=== PATIENT | female | born 1995 | race Caucasian/White ===

== ENCOUNTER 2021-12-28 19:43 | Emergency (ER) | payer OTHER, SELFPAY ==
[2021-12-28 20:18] VITALS: BP 115/71; PULSE 82; RESP 20; TEMP 36.7; O2SAT 100
--- NOTE | 2021-12-28 22:51 | ED.NEUROSD ---
HPI - Neuro Symptoms/Deficit General Chief Complaint: Neuro Symptoms/Deficit Stated Complaint: MCLEAN, N/V Time Seen by Provider: 12/28/21 22:32 History of Present Illness HPI Narrative: 26-year-old female with a history of migraine headaches here for evaluation of headache earlier today. Patient states that she had her typical aura of right eye flashers and floaters, followed by a left-sided throbbing headache. Attempted Tylenol but threw up shortly afterwards, which she states is not typical of her migraines. She states that she also noticed some paresthesias in her bilateral upper and lower extremities after the headache, this has since resolved without intervention. At time of my evaluation patient feels normal aside from slight headache migraine. No fevers, chills, abdominal pain, neck pain or stiffness, head trauma, unilateral weakness. Patient's daughter has COVID. Related Data Allergies Allergy/AdvReac Type Severity Reaction Status Date / Time No Known Allergies Allergy Verified 12/28/21 23:36 Review of Systems Review of Systems: Gen: Denies fevers or chills Eyes: Denies eye pain or visual change ENT: Denies congestion Respiratory: Denies shortness of breath or cough CV: Denies chest pain or palpitations GI: Denies abdominal pain nausea, emesis or diarrhea : denies burning, urgency, frequency or hematuria Musculoskeletal: Denies back pain or muscle pain Neuro: Reports headache, numbness and tingling in bilateral upper and lower extremities. Skin: Denies rash Except as documented, all other systems reviewed and negative Exam Narrative: APPEARANCE: No acute distress, nontoxic, resting in bed EYES: EOMI, PERRLA HEENT: No nuchal rigidity. Normocephalic, atraumatic, OMM RESPIRATORY: No respiratory distress Clear to auscultation bilaterally with no rhonchi wheezing or rales. CARDIOVASCULAR: Regular rate and rhythm without murmurs rubs or gallops. ABDOMINAL: Soft, nontender, nondistended, no rebound or guarding MUSCULOSKELETAL: Moves all extremities. No clubbing, cyanosis or edema. NEURO: Cranial nerves II through XII intact. Wetlands Conservation Laborer strength equal. Sensation intact throughout all 4 extremities. SKIN: Warm, dry. No rashes lesions or abrasions PSYCHIATRIC: Normal affect/mood Course Vital Signs Vital signs: Vital Signs Temperature 98.1 F 12/28/21 20:18 Pulse Rate 82 12/28/21 20:18 Respiratory Rate 20 12/28/21 20:18 Blood Pressure 115/71 12/28/21 20:18 Pulse Oximetry 100 12/28/21 20:18 Oxygen Delivery Room Air 12/28/21 20:18 Temperature 98.4 F 12/28/21 23:57 Pulse Rate 70 12/28/21 23:57 Respiratory Rate 16 12/28/21 23:57 Blood Pressure 112/68 12/28/21 23:57 Pulse Oximetry 100 12/28/21 23:57 Oxygen Delivery Room Air 12/28/21 20:18 MDM - Neuro Symptoms/Deficit MDM Narrative Medical decision making narrative: 26 year old female with a history of migraine MCLEAN here for evaluation of a headache preceded by her typical aura but followed by several new symptoms; such as vomiting and paresthesias in all 4 extremities. At time of my evaluation her symptoms have improved but her migraine remains. Patient has no deficits on exam; no nuchal rigidity and no weakness. Her sensation is intact in all 4 extremities. Her symptoms are likely a new manifestation of migraine with aura. Not consistent with TIA/CVA, meningitis, encephalitis, pseudotumor, malignancy. Patient improved after MCLEAN cocktail, fluids and mag (mag was 1.5) in the ED and feels ready to go home. Declining second liter of fluids although she appears significantly dehydrated on her UA. Encouraged increasing fluids at home; she was given return precautions and she voiced understanding. She has never seen a neurologist; provided follow up for possible abortive therapy of migraine. Lab Data Result diagrams: 12/28/21 22:41 12/28/21 22:41 Labs: Lab Results 12/28/21 12/28/21 12/28/21 Range/Units 22:40
[2021-12-28 22:57] LABS: Basophils Percent Auto 0.3 % (0.2-1.2); Hematocrit 40.2 % (37.0-47.0); Immature Granulocyte Absolute 0.04 K/mm3 (0.00-0.031); Immature Granulocyte Percent A 0.3 % (0-0.5); Lymphocytes Absolute Auto 1.59 K/mm3 (0.9-3.2); Lymphocytes Percent Auto 11.9 % (18.3-44.2); Mean Corpuscular HGB Conc 34.8 g/dl (32-36); Mean Corpuscular Hemoglobin 30.6 pg (26-34); Mean Corpuscular Volume 87.8 fl (80-100); Monocytes Absolute Auto 0.3 K/mm3 (0.1-0.6); Monocytes Percent Auto 2.6 % (2.6-8.5); Neutrophils Absolute Auto 11.3 K/mm3 (1.3-6.7); Neutrophils Percent Auto 84.9 % (45.5-73.1); Platelet Count Result 232 k/mm3 (150-375); Red Blood Count 4.58 M/mm3 (4.2-5.4); White Blood Count 13.3 K/mm3 (4.5-10.0)
[2021-12-28 22:57] LABS: Appearance Urine Clear (Clear); Bilirubin Urine 1+ (Negative); Blood Urine Negative (Negative); Color Urine Yellow (Yellow); Glucose Urine UA Negative (Negative); Ketones Urine 4+ mg/dL (Negative); Leukocyte Esterase Ur Negative LEU/UL (Negative); Nitrate Urine Negative (Negative); Protein Urine 1+ mg/dL (Negative); Specific Grav Ur 1.015 (1.001-1.035); Urobilinogen Urine 0.2 mg/dL (<2.0); pH Urine >=9.0 (5.0-9.0)
[2021-12-28 23:00] VITALS: BP 114/68; PULSE 70; RESP 16; TEMP 36.8; O2SAT 100
[2021-12-28 23:04] LABS: Mucus Urine Rare /lpf; RBC Urine 0-2 /hpf (0-2); Squamous Epithelial Cell Urine Few /hpf (Few); WBC Urine 0-3 /hpf
[2021-12-28 23:09] LABS: Add Urine Microscopic? YES
[2021-12-28] MEDS: PROCHLORPERAZINE EDISYLATE 10 MG/2 ML VIAL IV PUSH (23:09)
[2021-12-28] MEDS: diphenhydrAMINE HCl INJ 50 MG/ML VIAL 12.5 MG IV PUSH (23:09)
[2021-12-28] MEDS: SODIUM CHLORIDE 0.9% IV 1,000 ML 999 ML IV CONT (23:11)
[2021-12-28 23:12] LABS: Alanine Aminotransferase 18 U/L (6-35); Albumin Level 4.8 g/dL (3.5-5.1); Alkaline Phosphatase 116 U/L (38-126); Anion Gap 12 mmol/L (8-16); Aspartate Amino Transferase 22 U/L (14-36); Bilirubin,Total 1.2 mg/dL (0.2-1.3); Blood Urea Nitrogen 11 mg/dL (7-17); Calcium 9.3 mg/dL (8.4-10.2); Carbon Dioxide 23 mmol/L (22-30); Chloride 99 mmol/L (98-107); Estimated CRCL calculation 117 ml/min; Estimated Glomerular Filt Rate > 60; Glucose 129 mg/dL (65-110); Lipase 87 U/L (23-300); Magnesium 1.5 mg/dL (1.6-2.3); Phosphorus 4.8 mg/dL (2.5-4.5); Potassium 3.8 mmol/L (3.4-5.0); Sodium 134 mmol/L (137-145)
[2021-12-28 23:31] LABS: Influenza A QL RT-PCR Negative (Negative); Influenza B QL RT-PCR Negative (Negative); SARS-CoV-2 RNA PCR Negative
[2021-12-28] MEDS: MAGNESIUM SULF 1 GM/D5W 100 ML 1 GM/100 ML BAG IVPB (23:37)
[2021-12-28 23:57] VITALS: BP 112/68; PULSE 70; RESP 16; TEMP 36.9; O2SAT 100
== END 2021-12-29 00:43 | disposition home or self-care (01) ==
PROVIDERS: Physician Assistant; Emergency Provider Emergency Medicine
DX: G43.909 Migraine, unspecified, not intractable, without status migrainosus (principal); Z20.822 Contact with and (suspected) exposure to COVID-19
CPT/HCPCS: 36415; 80053; 81001; 81025; 83690; 83735; 84100; 85025; 87636; 96365; 96375; 99284; J0780; J1200; J3475; J7030

== ENCOUNTER 2024-07-05 19:39 | Emergency (ER) | payer OTHER, SELFPAY ==
--- OUTSIDE RECORDS SUMMARY | 2024-07-05 19:41 | XMS_ITS | Encounter Summary ---
Author Organization [facility] Healthcare Address [address] [place] [address] Care Team Providers Care Typecasting Machine Operator Name Role Phone Tessa Alvarez NP Primary Care Provider [phone] Katie Geiger Marjorie DO Unavailable [phone] Encounter Details Date Type Department Care Team (Late st Contact Info) Description 06/25/2024 Results Follow-Up [facility] Medical Group Primary Care at [address] [address] Tessa Alvarez NP [address] [place] [address] [address] [place] [address] Hepatitis B core antibody, total Blood, Hepatitis B Surface Antigen Blood, Vitamin B12, Additional followed-up results: 10 Social History Tobacco Use Types Packs/Day Years Used Date Smoking Tobacco: Never Smokeless Tobacco: Never PHQ-2 Answer Date Recorded PHQ-2 Total Score (If total score is 3 or more points, staff should administer the PHQ-9) 0 06/23/2024 PHQ-9 Answer Date Recorded PHQ-9 Total Score 20 07/22/2023 Comments Unknown Sex and Gender Information Value Date Recorded Sex Assigned at Not on file 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
--- OUTSIDE RECORDS SUMMARY | 2024-07-05 19:41 | XMS_ITS | Clinical Summary ---
Author Organization [employer] Elaina Mejia Address [address] [address] Care Team Providers Care Data Analyst Name Role Phone RuiElizabeth michael Primary Care Provider [phone] Allergies No known active allergies Medications citalopram (CeleXA) 20 mg tablet Take 0.5 tablets (10 mg total) by mouth daily for 1 week, THEN 1 tablet (20 mg total) daily thereafter. 30 Tablet 2 10/16/2023 7:32 PM CDT 4 Active tretinoin (RETIN-A) 0.025 % Cream Apply a thin layer to face before bedtime after washing. Then layer with moisturizer as needed. 20 Gram 5 03/25/2024 7:18 PM INVESTMENT REPRESENTATIVE 4 Active ondansetron (ZOFRAN ODT) 4 mg Tablet, Rapid Dissolve Dissolve 1 tablet (4 mg total) by mouth every 8 (eight) hours as needed for nausea or vomiting 20 Tablet 1 03/25/2024 7:18 PM INVESTMENT REPRESENTATIVE 4 Active citalopram (CeleXA) 20 mg tablet Take 1 Tablet (20 mg) by mouth daily. 90 Tablet 1 06/29/2024 7:13 PM CDT 5 Active Active Problems Problem Noted Date Diagnosed Date Positive self-administered antigen test for COVI D-19 02/06/2023 Previous delivery, antepartum condition or complication 07/25/2022 Resolved Problems Problem Noted Date Diagnosed Date Resolved Date Vaginal discharge during pre gnancy in third trimester 06/24/2021 06/27/2022 Uterine contractions 06/24/2021 023 Encounter for elective induction of labor 02/23/2021 06/27/2022 Breakthrough bleeding on Nexplanon 02/01/2016 02/23/2021 Overview (02/01/2016): Plan Motrin BID x 21 days. If still having breakthrough bleeding, plan Estrace 1mg po daily x 21 days Encounters Date Type Department Care Team Description 06/30/2024 External Device Data ST[facility] ABSTRACTION Provider, Abstract 06/16/2024 External Device Data STL ABSTRACTION Provider, Abstract 05/12/2024 External Device Data STL ABSTRACTION Provider, Abstract 04/21/2024 External Device Data STL ABSTRACTION Provider, Abstract 04/21/2024 External Device Data STL ABSTRACTION Provider, Abstract 04/20/2024 External Device Data STL ABSTRACTION Provider, Abstract from Last 3 Months Immunizations Immunization Administration Dates Next Due (ABRYSVO)(60 YR UP/GA 32-36 WKS) RSV, BIVALENT, PROTEIN SUBUNIT RSVPREF, DILUENT RECONSTITUTED, 0.5 ML, PF 01/17/2023 (ADACEL/BOOSTRIX)(10 YR UP) TDAP VACCINE, 0.5ML, IM 12/04/2022,04/19/2021 INFLUENZA VACCINE QUADRIVALENT 6 MOS UP IM 12/04 Family History Medical History Relation Name Comments Healthy Brother 1 Healthy Brother 2 Healthy Brother 3 Healthy Father No Known Problems Maternal Grandfather No Known Problems Maternal Grandmother Healthy Mother Thyroid Disease Mother No Known Problems Paternal Grandfather No Known Problems Paternal Grandmother Breast Cancer Neg Hx Colon Cancer Neg Hx Endometrial Cancer Neg Hx Ovarian Cancer Neg Hx Uterine Cancer Neg Hx Relation Name Status Comments Brother 1 Alive Brother 2 Alive Brother 3 Alive Father Alive Maternal Grandfather Alive Maternal Grandmother Alive Mother Alive Paternal Grandfather Alive Paternal Grandmother Alive Social History Tobacco Use Types Packs/Day Years Used Date Smoking Tobacco: Never Smokeless Tobacco: Never Tobacco Cessation:Counseling Given: Not Answered Alcohol Use Standard Drinks/Week Comments Not Currently 1.7 (1 standard drink = 0.6 oz p ure alcohol) weekends Feeling Safe Answer Date Recorded Are you in a relationship wi th someone who hurts you emotionally and/or physically? No 02/14/2023 Comments No Sex and Gender Information Value Date Recorded Sex Assigned at Not on file Legal Sex Female 12:28 PM CDT Gender Identity Not on file Sexual Orientation Not on file Occupation Industry Job Start Date Job End Date Not on file Not on file Not on file Not on file Last Filed Vital Signs Vital Sign Reading Time Taken Comments Blood Pressure 110/68 09/23/2023 10:46 AM CDT Pulse 80 09/23/2023 10:46 AM CDT Temperature 36.2 C (97.1 F) 09/23/2023 10:46 AM CDT Respiratory Rate 18 02/16/2023 6:56 AM INVESTMENT REPRESENTATIVE Oxygen Saturation 99% 09/23/2023 10: 46 AM CDT Inhaled Oxygen Concentration - - Weight 57.1 kg (125 lb 12.8 oz) 024 10:46 AM CDT Height 160 cm (5' 3 ) 09/23/2023 10:46 AM CDT Body Mass Index 22.28 09/23/2023 10:46 AM CDT Plan of Treatment Upcoming Encounters Date Type Department Care Team (Late st Contact Info) Description 09/23/2024 11:00 AM CDT Office Visit [facility] LAWN TECHNICIAN - [address] [place] [address] [place] [address] Katie Geiger, DO [address] [facility] [address] [place] [address] Health Maintenance Due Date Last Done Comments HEPATITIS B VACCINES (1 of 3 - 19+ 3-dose series) 2013 HPV/Cotest (21-29) 08/19/2015 INFLUENZA VACCINE (#1) 2023 12/04/2022 CERVICAL CANCER SCREENING 09/22/2026 PAP SMEAR 09/22/2026 09/23/2023, 09/0 02/2021, 09/14/2020, Additional history exists DTAP/TDAP/TD VACCINES (3 - Td or Tdap) 12/04/2032 12/04/2022, 04/19/2021 HPV VACCINES Aged Out No longer eligi ble based on patient's age to complete this topic Procedures Procedure Name Priority Date/Time Associated Diagnosis Comments CERV/VAG CYTO AGE BASED SCREEN PAP Routine 09/23/2023 11:19 AM CDT Encounter for gynecological examination without abnormal finding Screening for HPV (human papillomavirus) Screening for cervical cancer from Last 3 Months or Most Recently Relevant to Health Maintenance Results * CERV/VAG CYTO AGE BASED SCREEN PAP (09/23/2023 11:19 AM CDT) COMMENT (PAP): Zoe SustainURony Fountain Comment: This order for age-based cervical cancer and STI screening follows ACOG guidelines(PB 168, 140, MCA729). See individual assays for performing site location. CLINICAL INFORMATION Zoe Fountain Comment:None given LAST MENSTRUAL PERIOD Zoe Fountain Comment:NONE GIVEN PREV PAP: Zoe Fountain Comment:NONE GIVEN PREV BX: Zoe Fountain Comment:NONE GIVEN SOURCE Zoe Fountain Comment:Endocervix ADEQUACY: Zoe Fountain Comment: Satisfactory for evaluation. Endocervical/transformation zone component present. Age and/or menstrual status not provided PAP INTERP Zoe Fountain Comment: Cytology Results: Negative for intraepithelial lesion or malignancy. COMMENT (PAP TEST) Q uest Liliana Fountain Comment: This Pap test has been evaluated with computer assisted technology. CORK GRINDER: Lindsey Fountain Comment: MMD, CT(ASCP) CT Screening Location: [address] [address] [address] Liliana Fountain Comment: EXPLANATORY NOTE: The Pap is a screening test for cervical cancer. It is not a diagnostic test and is subject to false negative and false positive results. It is most reliable when a satisfactory sample, regularly obtained, is submitted with relevant clinical findings and history, and when the Pap result is evaluated along with historic and current clinical information. Test Performed at: [facility] [address] [facility] ENDOCERVIX / Unknown 09/23/2023 11:19 AM CDT 09/23/2023 10:39 PM CDT Katie Geiger DO PATHOLOGY/CYTOLOGY ORDERABLES F inal Result [facility] [phone] [place] [address] [address] [address] from Last 3 Months or Most Recently Relevant to Health Maintenance Insurance [facility] [id number] RX [employer] [place] [employer] (INTERNAL) [facility] Internal [facility] Advance Directives For more information, please contact: [phone] * Full Code (Latest Code Status on File) Date Activated Date Inactivated Comments 02/14/2023 1:20 PM 02/16/2023 3:20 PM * Full Code Date Activated Date Inactivated Comments 07/12/2021 5:02 PM 07/13/2021 12:36 PM * Full Code Date Activated Date Inactivated Comments 06/24/2021 11:46 AM 06/24/2021 4:31 PM Care Teams Data Analyst Relationship Specialty Start Date End Date Elizabeth Fabian DO [address] [place] [id number] PCP - General 01/26/15
--- OUTSIDE RECORDS SUMMARY | 2024-07-05 19:42 | XMS_ITS | Encounter Summary ---
Author Organization [facility] Healthcare Address [address] [place] [address] Care Team Providers Care Bookkeeping Machine Operator Name Role Phone Tessa Alvarez NP Primary Care Provider [phone] Katie Geiger DO Unavailable [phone] Encounter Details Date Type Department Care Team (Late st Contact Info) Description 06/26/2024 Results Follow-Up [facility] Medical Group Primary Care at [place] [address] [place] [address] Tessa Alvarez NP [address] [facility] [address] [place] [address] US Breast Left Complete Social History Tobacco Use Types Packs/Day Years [...] on file 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
--- OUTSIDE RECORDS SUMMARY | 2024-07-05 19:42 | XMS_ITS | Referral Summary ---
Author Organization [facility] Address [address] [place] [id number] Care Team Providers Care Washtub Worker Name Role Phone Tessa Alvarez NP Primary Care Provider [phone] Katie Geiger DO Unavailable [phone] Encounters Date Type Department Care Team Description 06/26/2024 Results Follow-Up [facility] Primary Care at [address] [address] Tessa Alvarez NP US Breast Left Complete 06/26/2024 12:02 PM CDT - 06/26/2024 11:59 PM CDT Hospital Encounter [address] [address] Breast pain, left Discharge Disposition: Discharge to home or self care 06/25/2024 Results Follow-Up [facility] Primary Care at [address] [address] Tessa Alvarez NP Hepatitis B core antibody, total Blood, Hepatitis B Surface Antigen Blood, Vitamin B12, Additional followed-up results: 10 06/23/2024 1:44 PM CDT - 06/23/2024 11:59 PM CDT Hospital Encounter [address] [address] Need for hepatitis B screening test; Fatigue, unspecified type; Need for hepatitis C screening test; Encounter for hepatitis C screening test for low risk patient Discharge Disposition: Discharge to home or self care 06/23/2024 1:30 PM CDT Lab [facility] Outpatient Lab at [address] [address] 06/23/2024 1:00 PM CDT Office Visit [facility] Primary Care at [address] [address] Tessa Alvarez NP Fatigue, unspecified type (Primary Dx); Post depression; Breast pain, left; Need for hepatitis B screening test; Need for hepatitis C screening test; Encounter for hepatitis C screening test for low risk patient; Migraine with aura and without status migrainosus, not intractable from Last 3 Months Allergies No known active allergies Medications rizatriptan (MAXALT) 10 mg tabletIndications: Migraine Take 1 tablet (10 mg total) by mouth once as needed for migraine May repeat in 2 hours if unresolved. Do not exceed 30 mg in 24 hours. 9 tablet 3 4 025 Active ondansetron ODT (ZOFRAN-ODT) 4 mg disintegrating tablet Take 1 tablet (4 mg total) by mouth every 8 (eight) hours as needed for nausea or vomiting 20 tablet 1 4 Active magnesium glycinate 100 mg tablet Take 200 mg by mouth Active cyanocobalamin (Vitamin B-12) 1,000 mcg tabletIndications: Prevention of Vitamin B12 Deficiency Take 2 tablets (2,000 mcg total) by mouth daily Active citalopram (CeleXA) 20 mg tablet Take 1 tablet (20 mg total) by mouth daily 90 tablet 1 5 025 Active citalopram (CeleXA) 20 mg tablet Take 1 tablet (20 mg total) by mouth daily 90 tablet 1 4 025 Discontin ued(Reord er) Active Problems Problem Noted Date Diagnosed Date Breast pain, left 06/23/2024 Fatigue 06/23/2024 Preventative health care 12/19/2023 Assessment & Plan (12/19/2023 12:33 PM MANAGER PORT): -Recommended: Healthy diet. Avoiding junk food/fast food. -30 minutes of exercise most days of the week. Increase to 45 minutes for weight loss. Health Maintenance reviewed - up-to-date on immunizations. -Influenza vaccine every year Recommend: - Topic Date Due Varicella Vaccines (1 of 2 - 13+ 2-dose series) Never done -F/u in 1 year for Annual PE or sooner if needed Migraine with aura and witho ut status migrainosus, not intractable 07/23/2023 Assessment & Plan (12/19/2023 12:34 PM MANAGER PORT): Continue B12 and magnesium nightly. Can continue Maxalt p.r.n.. Will add Zofran p.r.n. nausea. Assessment & Plan (07/23/2023 3:03 PM CDT): Cyclical with menstrual cycle. Usually only gets 1 per month. Discussed options. Will start with Maxalt 10 mg at onset of headache. Discussed how to use medication and dosage of medication. She will call if she does not find this effective and we can try other medication Post depression 07/22/2023 Assessment & Plan (06/23/2024 1:45 PM CDT): Stable on current medication. Continue citalopram as ordered. May follow up in 6 months Assessment & Plan (12/19/2023 12:34 PM MANAGER PORT): Stable. Improved with citalopram 20 mg once daily. Follow-up 6 months Assessment & Plan (09/03/2023 12:33 PM CDT): Improved. Will continue citalopram 20 mg once daily. Follow-up 6 months but reach out if there is any problems or concerns in the interim Assessment & Plan (07/23/2023 3:04 PM CDT): Discussed starting a medication and pt is agreeable. Will start citalopram . Discussed starting dose and titration to full dose, possible SE and time frame for expected results. Call if any suicidal thoughts or questions concerning SE. Do not abruptly stop medication without calling office. Follow up in 3-4 weeks for recheck and continuation of medications. Immunizations Immunization Administration Dates Next Due Influenza, Quadrivalent, Spl it, Intramuscular 12/04/2022 Influenza, Trivalent, Preser vative Free, Intramuscular 12/19/2023 Influenza, Unspecified 02/11/2023(Deferr ed: Patient Refused),02/11/2022(Deferred: Patient Refused) RSV, Bivalent, Protein Subun it Rsvpref, Diluent (Abrysvo) 01/17/2023 Tdap 12/04/2022,04/19/2021 Social History Tobacco Use Types Packs/Day Years [...] on file Legal Sex Female 7:44 AM MANAGER PORT Gender Identity Not on file Sexual Orientation Not on file Last Filed Vital Signs Vital Sign Reading Time Taken Comments Blood Pressure 94/60 06/23/2024 12:56 PM CDT Pulse 88 06/23/2024 12:56 PM CDT Temperature 36.8 C (98.3 F) 06/23/2024 12:56 PM CDT Respiratory Rate 18 06/23/2024 12:56 PM CDT Oxygen Saturation 98% 06/23/2024 12:56 PM CDT Inhaled Oxygen Concentration - - Weight 59.9 kg (132 lb) 06/23/2024 12:56 PM CDT Height 160 cm (5' 3 ) 06/23/2024 12:56 PM CDT Body Mass Index 23.38 06/23/2024 12:56 PM CDT Plan of Treatment Not on file Procedures Procedure Name Priority Date/Time Associated Diagnosis Comments US BREAST LEFT COMPLETE Schedule Routine, Read Routine (OP Routine) 06/26/2024 12:26 PM CDT Breast pain, left EGFR Routine 06/23/2024 1:44 PM CDT Fatigue, unspecified type DIFFERENTIAL AUTO Routine 06/23/2024 1:4 4 PM CDT Fatigue, unspecified type CBC WITH AUTO DIFFERENTIAL Routine 06/23/2024 1:44 PM CDT Fatigue, unspecified type COMPREHENSIVE METABOLIC PANEL Routine 06/23/2024 1:44 PM CDT Fatigue, unspecified type LIPID PANEL Routine 06/23/2024 1:44 PM CDT Fatigue, unspecified type THYROID FUNCTION CASCADE Routine 06/23/2024 1:44 PM CDT Fatigue, unspecified type HEMOGLOBIN A1C Routine 06/23/2024 1:44 PM CDT Fatigue, unspecified type IRON PROFILE W/ IBC Routine 06/23/2024 1 :44 PM CDT Fatigue, unspecified type VITAMIN B12 Routine 06/23/2024 1:44 PM CDT Fatigue, unspecified type HEPATITIS C ANTIBODY Routine 06/23/2024 1:44 PM CDT Need for hepatitis C screening test Encounter for hepatitis C screening test for low risk patient HEPATITIS B SURFACE ANTIBODY (IMMUNE STATUS) Routine 06/23/2024 1:44 PM CDT Need for hepatitis B screening test HEPATITIS B SURFACE ANTIGEN Routine 06/23/2024 1:44 PM CDT Need for hepatitis B screening test HEPATITIS B CORE ANTIBODY, TOTAL Routine 06/23/2024 1:44 PM CDT Need for hepatitis B screening test from Last 3 Months Results * US Breast Left Complete (06/26/2024 12:26 PM CDT) Anatomical Region Laterality Modality Breast Left Ultrasound 06/26/2024 12:5 1 PM CDT Impressions 06/26/2024 12:51 PM CDT No sonographic abnormality in the left breast. The results were discussed with the patient. OVERALL FINAL ASSESSMENT: BI-RADS Category 1: Negative. A bilateral screening mammogram is recommended at age 40. Electronically signed by: Bertrand Nicholson M.D. Narrative 06/26/2024 12:51 PM CDT EXAMINATION: LEFT BREAST SONOGRAM HISTORY: Left breast pain COMPARISON: None TECHNIQUE Directed ultrasound evaluation of the LEFT breast was performed. SONOGRAM FINDINGS: Targeted sonographic evaluation of the area of. At the 12 to 1 o'clock position, 1 to 3 cm from the nipple, no underlying solid or cystic lesions are seen. Tessa Alvarez NP IMG MAMMO PROCEDURES Final Re sult * eGFR (06/23/2024 1:44 PM CDT) eGFR >90 >=60 mL/min/1. 73 m2 Comment: Interpretive Data Reference Interval Normal >/= 90 mL/min/1.73m2 Mildly decreased* 60 - 89 mL/min/1.73m2 Mildly to moderately decreased 45 - 59 mL/min/1.73m2 Moderately to severely decreased 30 - 44 mL/min/1.73m2 Severely decreased 15 - 29 mL/min/1.73m2 Kidney Failure < 15 mL/min/1.73m2 *Relative to young adult level Estimated glomerular filtration rate is determined by the 2020 CKD-EPI equation recommended by the National Kidney Foundation (A Unifying Approach to GFR Estimation: Recommendations of the NKF-ASK Task Force on Reassessing the Inclusion of Race in Diagnosing Kidney Disease, JASN 202). The CKD-EPI equation should not be used for patients with unstable renal function and has not been validated in children and those over 70. Current interpretive data was last reviewed 2020. Blood 06/23/2024 1:44 PM CDT 06/23/2024 10:41 PM CDT Tesas Alvarez NP LAB BLOOD ORDERABLES Final Re sult [facility] [id number] Department [place] [address] * (ABNORMAL) Differential, auto (06/23/2024 1:44 PM CDT) Neutrophil abs 4.92 1.50 - 6.50 K/cumm Imm gran abs 0.04 0.00 - 0.10 K/cumm [facility] Lymphocyte abs 3.49(H) 0.80 - 3.30 K/cumm [facility] Monocyte abs 0.33 0.20 - 0.80 K/cumm [facility] Eosinophil abs 0.08 0.00 - 0.50 K/cumm [facility] Basophil abs 0.10 0.00 - 0.10 K/cumm [facility] Neutrophil pct 54.9 % [facility] Comment: Interpretive Data Percent cell count reference ranges are not reported, since discordance with absolute values may lead to misinterpretation of CBC data. Current Interpretive Data was last revised on 2017. Imm gran pct 0.4 % [facility] Comment: Interpretive Data Percent cell count reference ranges are not reported, since discordance with absolute values may lead to misinterpretation of CBC data. Current Interpretive Data was last revised on 2017. Lymphocyte pct 39.0 % [facility] Comment: Interpretive Data Percent cell count reference ranges are not reported, since discordance with absolute values may lead to misinterpretation of CBC data. Current Interpretive Data was last revised on 2017. Monocyte pct 3.7 % [facility] Comment: Interpretive Data Percent cell count reference ranges are not reported, since discordance with absolute values may lead to misinterpretation of CBC data. Current Interpretive Data was last revised on 2017. Eosinophil pct 0.9 % [facility] Comment: Interpretive Data Percent cell count reference ranges are not reported, since discordance with absolute values may lead to misinterpretation of CBC data. Current Interpretive Data was last revised on 2017. Basophil pct 1.1 % [facility] Comment: Interpretive Data Percent cell count reference ranges are not reported, since discordance with absolute values may lead to misinterpretation of CBC data. Current Interpretive Data was last revised on 2017. Blood 06/23/2024 1:44 PM CDT 06/23/2024 10:37 PM CDT us Tessa Alvarez NP LAB BLOOD ORDERABLES Final Re sult [facility] [address] [place] [address] * Thyroid Function [place] (06/23/2024 1:44 PM CDT) [facility] TSH 1.47 0.30 - 4.20 mcIUnit/mL Blood 06/23/2024 1:44 PM CDT 06/23/2024 10:37 PM CDT Tessa Alvarez NP LAB BLOOD ORDERABLES Final Re sult Performing Organization Address [facility] Co de Phone Number [facility] [address] [place] [address] * (ABNORMAL) Iron profile w/ IBC (06/23/2024 1:44 PM CDT) [facility] Iron 123 35 - 145 mcg/dl TIBC 419(H) 250 - 400 mcg/dL [facility] Transferrin saturation 29 20 - 50 % [facility] Blood 06/23/2024 1:44 PM CDT 06/23/2024 10:37 PM CDT Tessa Alvarez NP LAB BLOOD ORDERABLES Final Re sult Performing Organization Address [facility] Co de Phone Number [facility] [address] Department [place] [address] * (ABNORMAL) CBC with auto differential (06/23/2024 1:44 PM CDT) [facility] WBC 8.96 3.80 - 9.90 K/cumm Hgb 14.6 11.9 - 15.5 g/dL [facility] Hct 45.6(H) 35.6 - 45.5 % [facility] Plt 217 150 - 400 K/cumm [facility] MPV 12.6(H) 9.1 - 12.[address] [facility] RBC 4.99 3.90 - 5.20 M/cumm [facility] MCV 91.4 81.3 - 96.4 fL [facility] MCH 29.3 27.1 - 33.3 pg [facility] MCHC 32.0(L) 32.3 - 35.7 g/dL [facility] RDW CV 12.9 11.1 - 14.9 % [facility] RDW SD 43.0 35.7 - 48.[address] [facility] NRBC abs 0.00 0.00 - 0.01 K/cumm [facility] Blood 06/23/2024 1:44 PM CDT 06/23/2024 10:37 PM CDT Tessa Alvarez NP LAB BLOOD ORDERABLES Final Re sult Performing Organization Address [facility] Co de Phone Number F[facility] [phone] [place] [address] * Hepatitis C antibody Blood (06/23/2024 1:44 PM CDT) Hep C Ab Nonreactive Nonreactive Comment: Interpretive Data Nonreactive: Antibodies to HCV not detected. Does NOT exclude the possibility of recent exposure to HCV. Equivocal: Equivocal for HCV antibodies. Supplemental molecular testing will be automatically performed to determine infection status in accordance with current CDC screening recommendations. Reactive: Positive for HCV antibodies. This may represent current or past HCV infection. Supplemental molecular testing will be automatically performed to determine current infection status in accordance with current CDC screening recommendations. Interpretive data was last revised on 2019. Blood 06/23/2024 1:44 PM CDT 06/23/2024 10:37 PM CDT Tessa Alvarez NP LAB MICROBIOLOGY - GENERAL OR DERABLES Final Result Performing Organization Address [facility] Co de Phone Number YUESHASTA [phone] [place] [address] * Hepatitis B core antibody, total Blood (06/23/2024 1:44 PM CDT) Hep B core IgG/IgM Nonreactive Nonreactive Comment:Testing performed by : [facility], [address], [place]., [address] Blood 06/23/2024 1:44 PM CDT 06/24/2024 9:59 AM CDT Tessa Alvarez NP LAB MICROBIOLOGY - GENERAL OR DERABLES Final Result Performing Organization Address [facility] Co de Phone Number [facility] [address] [address] [facility] [place] [address] * Hepatitis B surface antibody (immune status) Blood (06/23/2024 1:44 PM CDT) HBsAb (immune status) Nonreactive Comment: Interpretive Data Nonreactive: This result is consistent with a lack of immunity to Hepatitis B Virus when used in the setting of routine screening. Equivocal: The immune status of the individual should be further assessed, if appropriate, after consideration of clinical status, risk factors, and additional diagnostic information. Reactive: This result is consistent with immunity to Hepatitis B Virus when used in the setting of routine screening. Current interpretive data was last revised on 19. Blood 06/23/2024 1:44 PM CDT 06/23/2024 10:37 PM CDT Tessa Alvarez NP LAB MICROBIOLOGY - GENERAL OR DERABLES Final Result Performing Organization Address [facility] Co de Phone Number [facility] [address] [facility] [place] [address] * Hepatitis B Surface Antigen Blood (06/23/2024 1:44 PM CDT) HepBsAg Nonreactive Nonreactive Blood 06/23/2024 1:44 PM CDT 06/23/2024 10:37 PM CDT Tessa Alvarez NP LAB MICROBIOLOGY - GENERAL OR DERABLES Final Result Performing Organization Address [facility] Co de Phone Number [facility] [address] [facility] [place] [address] * Hemoglobin A1c (06/23/2024 1:44 PM CDT) Pathologist [facility] Hgb A1C 5.0 4.0 - 5.6 % Estimated Average Glucose 97 mg/dL [facility] Comment: The ADA recommends reporting an estimated Average Glucose (eAG) with all Hemoglobin A1c results using the equation derived from a study of 507 normal and diabetic adults. Minority populations were underrepresented and children were not included. (Diabetes Care 31:5521-7616, 2008). The eAG is not equivalent to a fasting glucose. Blood 06/23/2024 1:44 PM CDT 06/23/2024 10:37 PM CDT Tessa Alvarez NP LAB BLOOD ORDERABLES Final Re sult Performing Organization Address [facility] Co de Phone Number F[facility] [address] [employer] [place], [place] [id number] * (ABNORMAL) Vitamin B12 (06/23/2024 1:44 PM CDT) [facility] Vitamin B12 2,986(H) 230 - 1,250 pg/mL Blood 06/23/2024 1:44 PM CDT 06/23/2024 10:37 PM CDT Tessa Alvarez NP LAB BLOOD ORDERABLES Final Re sult Performing Organization Address [facility] Co de Phone Number [facility] [address] [address] [place] [address] * (ABNORMAL) Lipid panel (06/23/2024 1:44 PM CDT) [facility] Cholesterol 175 30 - 199 mg/dL Comment: Interpretive Data Ages < or = 19 years Acceptable: <170 mg/dL Borderline high: 170-199 mg/dL High: >or= 200 mg/dL Ages > or = 20 years Desirable: <200 mg/dL Borderline high: 200-239 mg/dL High: >or= 240 mg/dL Literature References: 1. Expert Panel on Integrated Guidelines for Cardiovascular Health and Risk Reduction in Children and Adolescents. Pediatrics 2011;128:S213 2. NCEP Expert Panel. Circulation 2004;110:227 Current Interpretive Data was last revised on 2017. Triglycerides 246(H) <=149 mg/dL [facility] Comment: Interpretive Data Ages < or = 9 years Acceptable: <75 mg/dL Borderline high: 75-99 mg/dL High: >or= 100 mg/dL Ages 10 to 20 years Acceptable: <90 mg/dL Borderline high: 90-129 mg/dL High: >or= 130 mg/dL Ages > or = 20 years Desirable: <150 mg/dL Borderline high: 150-199 mg/dL High: 200-499 mg/dL Very high: >or= 499 mg/dL Literature References: 1. Expert Panel on Integrated Guidelines for Cardiovascular Health and Risk Reduction in Children and Adolescents. Pediatrics 2011;128:S213 2. NCEP Expert Panel. Circulation 2004;110:227 Current Interpretive Data was last revised on 2017. HDL 54 >=40 mg/dL [facility] Comment: Interpretive Data Ages < or = 19 years Acceptable: >45 mg/dL Borderline low: 40-45 mg/dL Low: <40 mg/dL Ages > or = 20 years Desirable: >or= 60 mg/dL Low: <40 mg/dL Literature References: 1. Expert Panel on Integrated Guidelines for Cardiovascular Health and Risk Reduction in Children and Adolescents. Pediatrics 2011;128:S213 2. NCEP Expert Panel. Circulation 2003;110:227 Current Interpretive Data was last revised on 2017. LDL, calculated 81 <=129 mg/dL [facility] Comment: Interpretive Data Ages < or = 19 years Acceptable: <110 mg/dL Borderline high: 110-129 mg/dL High: >or= 130 mg/dL Ages > or = 20 years Optimal: <100 mg/dL Near optimal: 100-129 mg/dL Borderline high: 130-159 mg/dL High: >160 mg/dL Calculated using the Johnnie LDL-C estimating equation. This equation was implemented on 2023. Prior to this date LDL-C was estimated using the Friedewald equation. Literature References: 1. Expert Panel on Integrated Guidelines for Cardiovascular Health and Risk Reduction in Children and Adolescents. Pediatrics 2011;128:S213 2. NCEP Expert Panel. Circulation 2004;110:227 3. Johnnie Maldonado et al. TUNDE Cardiol. 2019June 11;5(5):540-548. doi: 10.1001/jamacardio.2020.0013 Current Interpretive Data was last revised on 2023. Non-HDL Cholesterol 121 mg/dL [facility] Comment: Interpretive Data Ages < or = 19 years Acceptable: <120 mg/dL Borderline high: 120-144 mg/dL High: >145 mg/dL Ages > or = 20 years When triglycerides are >200 mg/dL, Non-HDL cholesterol is a secondary target of therapy with treatment goals that are 30 mg/dL greater than the LDL cholesterol target. Literature References: 1. Expert Panel on Integrated Guidelines for Cardiovascular Health and Risk Reduction in Children and Adolescents. Pediatrics 2011;128:S213 2. NCEP Expert Panel. Circulation 2004;110:227 Current Interpretive Data was last revised on 2017. Chol/HDL ratio 3 [facility] Blood 06/23/2024 1:44 PM CDT 06/23/2024 10:37 PM CDT Tessa Alvarez NP LAB BLOOD ORDERABLES Final Re sult [facility] [address] Department [place] [address] * (ABNORMAL) Comprehensive metabolic panel (06/23/2024 1:44 PM CDT) Sodium 139 135 - 145 mmol/L Potassium, pl 3.9 3.3 - 4.9 mmol/L [facility] Chloride 102 97 - 110 mmol/L [facility] CO2 25 22 - 32 mmol/L [facility] Anion gap 12 2 - 15 mmol/L [facility] BUN 12 6 - 25 mg/dL [facility] Creatinine 0.57(L) 0.60 - 1.10 mg/dL [facility] Glucose 81 70 - 199 mg/dL [facility] Comment: Interpretive Data Fasting glucose >/= 126 mg/dl is diagnostic for diabetes. Fasting is defined as no caloric intake for at least 8 hours. Fasting glucose between 100 mg/dl to 125 mg/dl is diagnostic of prediabetes. In a patient with classic symptoms of hyperglycemia or hyperglycemic crisis, a random glucose >/= 200 mg/dl is diagnostic for diabetes. In the absence of unequivocal hyperglycemia, results should be confirmed by repeat testing. The classification and Diagnosis of Diabetes Diabetes Care 202; 46: S19-S40. Current interpretive data was last revised 2022. Calcium 9.8 8.5 - 10.3 mg/dL [facility] Bilirubin, total 0.3 0.1 - 1.2 mg/dL [facility] Protein, pl 7.6 6.5 - 8.5 g/dL [facility] Albumin 4.7 3.5 - 5.0 g/dL [facility] Alk phos 86 40 - 130 Units/L [facility] ALT 8 7 - 45 Units/L [facility] AST 27 10 - 45 Units/L [facility] Blood 06/23/2024 1:44 PM CDT 06/23/2024 10:37 PM CDT Tessa Alvarez NP LAB BLOOD ORDERABLES Final Re sult [facility] [address] Department [place] [address] from Last 3 Months Insurance [facility] CHOICE PLUS [facility] CHOICE PLUS Care Teams Washtub Worker Relationship Specialty Start Date End Date Tessa Alvarez NP PCP - General Family Medicine 07/22/23 Katie Geiger DO [address] [facility] [id number] [place] [id number] Referring Physician Obstetrics and Gynecology 12/19/23
--- OUTSIDE RECORDS SUMMARY | 2024-07-05 19:42 | XMS_ITS | Clinical Summary ---
Author Organization [facility] [address] Address [address] [place] [phone] Care Team Providers Care Look Out Tower Fire Watcher Name Role Phone Tessa Alvarez NP Primary Care Provider [phone] Katie Geiger DO Unavailable Allergies No known active allergies Medications rizatriptan [...] Assessment & Plan (12/19/2023 12:33 PM MANAGER BUSINESS INTELLIGENCE): -Recommended: Healthy diet. Avoiding junk food/fast food. [...] Assessment & Plan (12/19/2023 12:34 PM MANAGER BUSINESS INTELLIGENCE): Continue B12 and magnesium nightly. Can continue [...] Assessment & Plan (12/19/2023 12:34 PM MANAGER BUSINESS INTELLIGENCE): Stable. Improved with citalopram 20 mg once [...] weeks for recheck and continuation of medications. Encounters Date Type Department Care Team Description 06/26/2024 12:02 PM CDT - 06/26/2024 11:59 PM CDT Hospital Encounter [facility] [address] [place] [address] Breast pain, left Discharge Disposition: Discharge to home or self care 06/26/2024 Results Follow-Up [facility] Primary Care at [address] [phone] Tessa Alvarez NP US Breast Left Complete 06/25/2024 Results Follow-Up [facility] Primary Care at [address] [phone] Tessa Alvarez NP Hepatitis B core antibody, total Blood, Hepatitis B Surface Antigen Blood, Vitamin B12, Additional followed-up results: 10 06/23/2024 1:44 PM CDT - 06/23/2024 11:59 [place] [address] Need for hepatitis B screening test; Fatigue, unspecified type; Need for hepatitis C screening test; Encounter for hepatitis C screening test for low risk patient Discharge Disposition: Discharge to home or self care 06/23/2024 1:30 PM CDT Lab [facility] Outpatient Lab at [address] [phone] 06/23/2024 1:00 PM CDT Office Visit [facility] Primary Care at [address] [phone] Tessa Alvarez NP Fatigue, unspecified type (Primary Dx); Post depression; Breast pain, left; Need for hepatitis B screening test; Need for hepatitis C screening test; Encounter for hepatitis C screening test for low risk patient; Migraine with aura and without status migrainosus, not intractable from Last 3 Months Immunizations Immunization Administration Dates Next Due Influenza, Quadrivalent, Spl it, Intramuscular 12/04/2022 Influenza, Trivalent, Preser vative Free, Intramuscular 12/19/2023 Influenza, Unspecified 02/11/2023(Deferr ed: Patient Refused),02/11/2022(Deferred: Patient Refused) RSV, Bivalent, Protein Subun it Rsvpref, Diluent (Abrysvo) 01/17/2023 Tdap 12/04/2022,04/19/2021 Surgical History Surgery Date Site/Laterality Comments CLAVICLE SURGERY SECTION Medical History Medical History Date Comments Migraine Family History Medical History Relation Name Comments Bipolar disorder Father unknown Thyroid disease Maternal Grandmother Hypothyroidism Mother Relation Name Status Comments Father unknown Alive Maternal Grandmother Mother Alive Social History Tobacco Use Types Packs/Day [...] file Legal Sex Female 7:44 AM MANAGER BUSINESS INTELLIGENCE Gender Identity Not on file Sexual Orientation Not on file Obstetrics History Last Filed Vital Signs Vital Sign Reading [...] 06/23/2024 12:56 PM CDT Plan of Treatment Health Maintenance Due Date Last Done Comments Cervical Cancer Screening 1994 Varicella Vaccines (1 of 2 - 13+ 2-dose series) 08/19/2007 Covid-19 Vaccine ( season) 2023 02/01/2021, 05/01/2020, 04/10/2020 Depression Screening 06/23/2025 06/23/2024, 12/19/2023, 09/03/2023, Additional history exists Regular Well Visit/Exam 18-64 06/23/2025 06/23/2024, 12/19/2023 DTaP/Tdap/Td Vaccine (3 - Td or Tdap) 12/04/2032 12/04/2022, 04/19/2021 Influenza Vaccine Completed 12/19/2023, 12/04/2022 Hepatitis B Screening Completed 06/23/2024 Hepatitis C Screening Completed 06/23/2024 HPV Vaccines Aged Out No longer eligi ble based on patient's age to complete this topic Pneumococcal vaccine <65 Aged Out No longer eligible based on patient's age to complete this [...] underlying solid or cystic lesions are seen. us Tessa Alvarez NP IMG MAMMO PROCEDURES Final [...] 1:44 PM CDT 06/23/2024 10:41 PM CDT Tessa Alvarez NP LAB BLOOD ORDERABLES Final Re sult FOUZIA [address] Department [place] [address] * (ABNORMAL) Differential, auto (06/23/2024 1:44 PM CDT) Neutrophil abs 4.92 1.50 - 6.50 K/cumm Imm gran abs 0.04 0.00 - 0.10 K/cumm [facility] Lymphocyte abs 3.49(H) 0.80 - 3.30 K/cumm [facility] Monocyte abs 0.33 0.20 - 0.80 K/cumm [facility] Eosinophil abs 0.08 0.00 - 0.50 K/cumm [facility] Basophil abs 0.10 0.00 - 0.10 K/cumm [facility] Neutrophil pct 54.9 % FOUZIA Comment: Interpretive Data Percent cell count reference ranges are not reported, since discordance with absolute values may lead to misinterpretation of CBC data. Current Interpretive Data was last revised on 2017. Imm gran pct 0.4 % FOUZIA Comment: Interpretive Data Percent cell count reference ranges are not reported, since discordance with absolute values may lead to misinterpretation of CBC data. Current Interpretive Data was last revised on 2017. Lymphocyte pct 39.0 % C[facility] Comment: Interpretive Data Percent cell count reference ranges are not reported, since discordance with absolute values may lead to misinterpretation of CBC data. Current Interpretive Data was last revised on 2017. Monocyte pct 3.7 % [facility] Comment: Interpretive Data Percent cell count reference ranges are not reported, since discordance with absolute values may lead to misinterpretation of CBC data. Current Interpretive Data was last revised on 2017. Eosinophil pct 0.9 % [facility] Comment: Interpretive Data Percent cell count reference ranges are not reported, since discordance with absolute values may lead to misinterpretation of CBC data. Current Interpretive Data was last revised on 2017. Basophil pct 1.1 % [facility] Comment: Interpretive Data Percent cell count reference ranges are not reported, since discordance with absolute values may lead to misinterpretation of CBC data. Current Interpretive Data was last revised on 2017. Blood 06/23/2024 1:44 PM CDT 06/23/2024 10:37 PM CDT Tessa Alvarez NP LAB BLOOD ORDERABLES Final Re sult Performing Organization Address [facility] Co de Phone Number FOUZIA MARIANO [address] [employer] [place], [place] [id number] * Thyroid Function O'Brien (06/23/2024 1:44 PM CDT) TSH 1.47 0.30 - 4.20 mcIUnit/mL Blood 06/23/2024 1:44 PM CDT 06/23/2024 10:37 PM CDT Tessa Alvarez NP LAB BLOOD ORDERABLES Final Re sult Performing Organization Address [facility] Co de Phone Number FOUZIA MARIANO [address] [facility] [place] [place] [address] * (ABNORMAL) Iron profile w/ IBC (06/23/2024 1:44 PM CDT) Iron 123 35 - 145 mcg/dl TIBC 419(H) 250 - 400 mcg/dL [facility] Transferrin saturation 29 20 - 50 % [facility] Blood 06/23/2024 1:44 PM CDT 06/23/2024 10:37 PM CDT Tessa Alvarez NP LAB BLOOD ORDERABLES Final Re sult Performing Organization Address [facility] Co de Phone Number FOUZIA MARIANO [address] [place] [address] * (ABNORMAL) CBC with auto differential (06/23/2024 1:44 PM CDT) Pathologist [facility] WBC 8.96 3.80 - 9.90 K/cumm Hgb 14.6 11.9 - 15.5 g/dL [facility] Hct 45.6(H) 35.6 - 45.5 % [facility] Plt 217 150 - 400 K/cumm [facility] MPV 12.6(H) 9.1 - 12.3 fL [facility] RBC 4.99 3.90 - 5.20 M/cumm [facility] MCV 91.4 81.3 - 96.4 fL [facility] CH MCH 29.3 27.1 - 33.3 pg [facility] MCHC 32.0(L) 32.3 - 35.7 g/dL [facility] CH RDW CV 12.9 11.1 - 14.9 % [facility] CH RDW SD 43.0 35.7 - 48.1 fL [facility] NRBC abs 0.00 0.00 - 0.01 K/cumm [facility] Blood 06/23/2024 1:44 PM CDT 06/23/2024 10:37 PM CDT Tessa Alvarez NP LAB BLOOD ORDERABLES Final Re sult Performing Organization Address [facility]/ZIP Co de Phone Number FOUZIA MARIANO [address] [place] [place] [address] * Hepatitis C antibody Blood (06/23/2024 1:44 PM CDT) Pathologist [facility] Hep C Ab Nonreactive Nonreactive Comment: Interpretive [...] OR DERABLES Final Result Performing Organization Address [facility] Co de Phone Number [facility] [address] [place] [address] * Hepatitis B core antibody, total Blood (06/23/2024 1:44 PM CDT) Pathologist [facility] Hep B core IgG/IgM Nonreactive Nonreactive Comment:Testing performed by : [facility], [address] [place]., [address] Blood 06/23/2024 1:44 PM CDT 06/24/2024 9:59 AM CDT Tessa Alvarez NP LAB MICROBIOLOGY - GENERAL OR DERABLES Final Result Performing Organization Address City/[facility] Co de Phone Number [facility] [address] [place] [address] * Hepatitis B surface antibody (immune status) Blood (06/23/2024 1:44 PM CDT) Pathologist [facility] HBsAb (immune status) Nonreactive Comment: Interpretive Data [...] OR DERABLES Final Result Performing Organization Address [facility] de Phone Number FOUZIA [address] [place] [address] * Hepatitis B Surface Antigen Blood (06/23/2024 1:44 PM CDT) Pathologist [facility] HepBsAg Nonreactive Nonreactive Blood 06/23/2024 1:44 PM CDT 06/23/2024 10:37 PM CDT Tessa Alvarez NP LAB MICROBIOLOGY - GENERAL OR DERABLES Final Result Performing Organization Address [facility] de Phone Number [facility] [address] [place] [address] * Hemoglobin A1c (06/23/2024 1:44 PM CDT) Pathologist [facility] Hgb A1C 5.0 4.0 - 5.6 % Estimated Average Glucose 97 mg/dL FOUZIA MARIANO Comment: The ADA recommends reporting an estimated Average Glucose (eAG) with all Hemoglobin A1c results using the equation derived from a study of 507 normal and diabetic adults. Minority populations were underrepresented and children were not included. (Diabetes Care 31:3735-1593, 2008). The eAG is not equivalent to a fasting glucose. Blood 06/23/2024 1:44 PM CDT 06/23/2024 10:37 PM CDT Tessa Alvarez NP LAB BLOOD ORDERABLES Final Re sult Performing Organization Address [facility] Co de Phone Number FOUZIA [address] [facility] [employer] [place], [place] [phone] * (ABNORMAL) Vitamin B12 (06/23/2024 1:44 PM CDT) Vitamin B12 2,986(H) 230 - 1,250 pg/mL Blood 06/23/2024 1:44 PM CDT 06/23/2024 10:37 PM CDT Tessa Alvarez NP LAB BLOOD ORDERABLES Final Re sult FOUZIA MARIANO [address] Department [place] [address] * (ABNORMAL) Lipid panel (06/23/2024 1:44 PM CDT) Cholesterol 175 30 - 199 mg/dL Comment: [...] on 2017. Triglycerides 246(H) <=149 mg/dL FOUZIA MARIANO Comment: Interpretive Data Ages < or = [...] on 2017. HDL 54 >=40 mg/dL FOUZIA MARIANO Comment: Interpretive Data Ages < or = [...] 3. Johnnie Maldonado et al. TUNDE Cardiol. 2020 June 11;5(5):540-548. doi: 10.1001/jamacardio.2020.0013 Current Interpretive Data was last revised on 2023. Non-HDL Cholesterol 121 mg/dL FOUZIA Comment: Interpretive Data Ages < [...] last revised on 2017. Chol/HDL ratio 3 F[facility]IA Blood 06/23/2024 1:44 PM CDT 06/23/2024 10:37 PM CDT Tessa Alvarez NP LAB [place]LOOD [place] [address] [address] Department [place] [address] * (ABNORMAL) Comprehensive metabolic panel (06/23/2024 1:44 PM CDT) Sodium 139 135 - 145 mmol/L Potassium, pl 3.9 3.3 - 4.9 mmol/L [facility] Chloride 102 97 - 110 mmol/L [facility] CO2 25 22 - 32 mmol/L [facility] Anion gap 12 2 - 15 mmol/L [facility] BUN 12 6 - 25 mg/dL [facility] Creatinine 0.57(L) 0.60 - 1.10 mg/dL [facility] Glucose 81 70 - 199 mg/dL [facility] Comment: Interpretive Data Fasting glucose >/= 126 [...] classification and Diagnosis of Diabetes Diabetes Care 2021; 46: S19-S40. Current interpretive data was last [...] CDT 06/23/2024 10:37 PM CDT Tessa Alvarez BIOSOLIDS MANAGEMENT TECHNICIAN LAB BLOOD ORDERABLES Final Re sult FOUZIA MARIANO [address] [place] [address] from Last 3 Months Insurance [facility] PL[facility] PL[facility] Care Teams Look Out Tower Fire Watcher Relationship Specialty Start Date End Date Tessa Alvarez NP PCP - General Family Medicine 07/22/23 Katie Geiger DO [address] [place] [place] [address] Referring Physician Obstetrics and Gynecology 12/19/23
[2024-07-05 19:56] VITALS: BP 123/75; PULSE 84; RESP 16; TEMP 36.7; O2SAT 100
--- OUTSIDE RECORDS SUMMARY | 2024-07-05 20:39 | XMS_ITS | Referral Summary ---
Author Organization [facility] Address [address] [place] [phone] Care Team Providers Care Car Sealer Name Role Phone Tessa Alvarez NP Primary Care Provider [phone] Katie Geiger DO Unavailable [phone] Encounters Date Type Department Care Team Description 06/26/2024 Results Follow-Up [facility] Primary Care at [address] [phone] Tessa Alvarez NP US Breast Left Complete 06/26/2024 12:02 PM CDT - 06/26/2024 11:59 PM CDT Hospital Encounter [address] [address] Breast pain, left Discharge Disposition: Discharge to home or self care 06/25/2024 Results Follow-Up [facility] Primary Care at [address] [phone] Tessa Alvarez NP Hepatitis B core antibody, total Blood, Hepatitis B Surface Antigen Blood, Vitamin B12, Additional followed-up results: 10 06/23/2024 1:44 PM CDT - 06/23/2024 11:59 PM CDT Hospital Encounter [address] [address] Need for hepatitis B screening test; Fatigue, unspecified type; Need for hepatitis C screening test; Encounter for hepatitis C screening test for low risk patient Discharge Disposition: Discharge to home or self care 06/23/2024 1:30 PM CDT Lab [facility] Outpatient Lab at [address] [phone] 06/23/2024 1:00 PM CDT Office Visit [facility] Primary Care at [address] [phone] Tessa Alvarez NP Fatigue, unspecified [...] 12/19/2023 Assessment & Plan (12/19/2023 12:33 PM ELECTRICAL SUPERINTENDENT): -Recommended: Healthy diet. Avoiding junk food/fast food. [...] 07/23/2023 Assessment & Plan (12/19/2023 12:34 PM ELECTRICAL SUPERINTENDENT): Continue B12 and magnesium nightly. Can continue [...] months Assessment & Plan (12/19/2023 12:34 PM ELECTRICAL SUPERINTENDENT): Stable. Improved with citalopram 20 mg once [...] on file Legal Sex Female 7:44 AM ELECTRICAL SUPERINTENDENT Gender Identity Not on file Sexual Orientation [...] BLOOD ORDERABLES Final Re sult FOUZIA MARIANO [address] Department [place] [address] * (ABNORMAL) Differential, auto (06/23/2024 1:44 PM CDT) Neutrophil abs 4.92 1.50 - 6.50 K/cumm Imm gran abs 0.04 0.00 - 0.10 K/cumm [facility] Lymphocyte abs 3.49(H) 0.80 - 3.30 K/cumm [facility] Monocyte abs 0.33 0.20 - 0.80 K/cumm [facility] Eosinophil abs 0.08 0.00 - 0.50 K/cumm [facility] Basophil abs 0.10 0.00 - 0.10 K/cumm [facility] Neutrophil pct 54.9 % [facility] Comment: Interpretive Data Percent cell count reference ranges are not reported, since discordance with absolute values may lead to misinterpretation of CBC data. Current Interpretive Data was last revised on 2017. Imm gran pct 0.4 % [facility] Comment: Interpretive Data Percent cell count reference ranges are not reported, since discordance with absolute values may lead to misinterpretation of CBC data. Current Interpretive Data was last revised on 2017. Lymphocyte pct 39.0 % [facility] Comment: Interpretive Data Percent cell count reference ranges are not reported, since discordance with absolute values may lead to misinterpretation of CBC data. Current Interpretive Data was last revised on 2017. Monocyte pct 3.7 % [facility] Comment: Interpretive Data Percent cell count reference ranges are not reported, since discordance with absolute values may lead to misinterpretation of CBC data. Current Interpretive Data was last revised on 2017. Eosinophil pct 0.9 % [facility] Comment: Interpretive Data Percent cell count reference ranges are not reported, since discordance with absolute values may lead to misinterpretation of CBC data. Current Interpretive Data was last revised on 2017. Basophil pct 1.1 % [facility] Comment: Interpretive Data Percent cell count reference ranges are not reported, since discordance with absolute values may lead to misinterpretation of CBC data. Current Interpretive Data was last revised on 2017. Blood 06/23/2024 1:44 PM CDT 06/23/2024 10:37 PM CDT us Tessa Alvarez NP LAB BLOOD ORDERABLES Final Re sult FOUZIA MARIANO [address] Department [place] [address] * Thyroid Function [place] (06/23/2024 1:44 PM CDT) [facility] TSH 1.47 0.30 - 4.20 mcIUnit/mL Blood 06/23/2024 1:44 PM CDT 06/23/2024 10:37 PM CDT Tessa Alvarez NP LAB BLOOD ORDERABLES Final Re sult Performing Organization Address [place] Co de Phone Number FOUZIA MARIANO [address] [place] [address] * (ABNORMAL) Iron profile w/ IBC (06/23/2024 1:44 PM CDT) [facility] Iron 123 35 - 145 mcg/dl TIBC 419(H) 250 - 400 mcg/dL [facility] Transferrin saturation 29 20 - 50 % [facility] Blood 06/23/2024 1:44 PM CDT 06/23/2024 10:37 PM CDT Tessa Alvarez NP LAB BLOOD ORDERABLES Final Re sult Performing Organization Address [facility] Co de Phone Number FOUZIA MARIANO [address] Department [place] [place] [address] * (ABNORMAL) CBC with auto differential (06/23/2024 1:44 PM CDT) [facility] WBC 8.96 3.80 - 9.90 K/cumm Hgb 14.6 11.9 - 15.5 g/dL [facility] Hct 45.6(H) 35.6 - 45.5 % [facility] Plt 217 150 - 400 K/cumm [facility] MPV 12.6(H) 9.1 - 12.3 fL [facility] RBC 4.99 3.90 - 5.20 M/cumm [facility] MCV 91.4 81.3 - 96.4 fL [facility] MCH 29.3 27.1 - 33.3 pg [facility] CH MCHC 32.0(L) 32.3 - 35.7 g/dL [facility] RDW CV 12.9 11.1 - 14.9 % [facility] RDW SD 43.0 35.7 - 48.1 fL [facility] NRBC abs 0.00 0.00 - 0.01 K/cumm [facility] Blood 06/23/2024 1:44 PM CDT 06/23/2024 10:37 PM CDT Tessa Alvarez NP LAB BLOOD ORDERABLES Final Re sult Performing Organization Address [facility] Co de Phone Number FOUZIA [address] [place] [address] * Hepatitis C antibody Blood [...] OR DERABLES Final Result Performing Organization Address [facility] Co de Phone Number YUESHASTA [address] [address] [place] [address] * Hepatitis B core antibody, total Blood (06/23/2024 1:44 PM CDT) Hep B core IgG/IgM Nonreactive Nonreactive Comment:Testing performed by : [facility], [address] [facility] [facility] [address], [place]., [address] Blood 06/23/2024 1:44 PM CDT 06/24/2024 9:59 AM CDT Tessa Alvarez NP LAB MICROBIOLOGY - GENERAL OR DERABLES Final Result Performing Organization Address [facility] Co de Phone Number [facility] [address] [facility] [place] [address] * Hepatitis B surface antibody (immune status) [...] OR DERABLES Final Result Performing Organization Address [facility] Co de Phone Number [facility] [address] [address] [facility] [place] [address] * Hepatitis B Surface Antigen Blood (06/23/2024 1:44 PM CDT) HepBsAg Nonreactive Nonreactive Blood 06/23/2024 1:44 PM CDT 06/23/2024 10:37 PM CDT Tessa Alvarez NP LAB MICROBIOLOGY - GENERAL OR DERABLES Final Result Performing Organization Address [facility] Co de Phone Number [facility] [address] [address] [facility] [place] [address] * Hemoglobin A1c (06/23/2024 1:44 PM CDT) Pathologist [facility] Hgb A1C 5.0 4.0 - 5.6 % Estimated Average Glucose 97 mg/dL FOUZIA MARIANO Comment: The ADA recommends reporting an estimated Average Glucose (eAG) with all Hemoglobin A1c results using the equation derived from a study of 507 normal and diabetic adults. Minority populations were underrepresented and children were not included. (Diabetes Care 31:9618-1541, 2008). The eAG is not equivalent to a fasting glucose. Blood 06/23/2024 1:44 PM CDT 06/23/2024 10:37 PM CDT Tessa Alvarez NP LAB BLOOD ORDERABLES Final Re sult Performing Organization Address [facility] Co de Phone Number FOUZIA [address] [employer] [place], [place] [id number] * (ABNORMAL) Vitamin B12 (06/23/2024 1:44 PM CDT) [facility] Vitamin B12 2,986(H) 230 - 1,250 pg/mL Blood 06/23/2024 1:44 PM CDT 06/23/2024 10:37 PM CDT Tessa Alvarez NP LAB BLOOD ORDERABLES Final Re sult Performing Organization Address [facility] Co de Phone Number [facility] [address] [address] [place] [address] * (ABNORMAL) Lipid panel (06/23/2024 1:44 PM CDT) [facility] Cholesterol 175 30 - 199 mg/dL Comment: [...] NP LAB BLOOD ORDERABLES Final Re sult [facility] [address] Department [place] [address] * (ABNORMAL) Comprehensive metabolic panel (06/23/2024 1:44 [...] NP LAB BLOOD ORDERABLES Final Re sult [facility] [address] [address] Department [place] [address] from Last 3 Months Insurance [facility] CHOICE PLUS [facility] HMO/PPO Address: [facility] [address] [place] [address] [facility] CHOICE PLUS [facility] HMO/PPO Address: [facility] [id number] [place], [place] [id number] Care Teams Car Sealer Relationship Specialty Start Date End Date Tessa Alvarez NP PCP - General Family Medicine 07/22/23 Katie Geiger DO [address] [facility] [address] [place] [phone] Referring Physician Obstetrics and Gynecology 12/19/23
--- OUTSIDE RECORDS SUMMARY | 2024-07-05 20:39 | XMS_ITS | Clinical Summary ---
Author Organization [facility] [address] Address [address] [place] [address] Care Team Providers Care Marketing Systems Manager Name Role Phone Tessa Alvarez NP Primary Care Provider [phone] Katie Geiger DO Unavailable [phone] Allergies No known active allergies Medications rizatriptan [...] 12/19/2023 Assessment & Plan (12/19/2023 12:33 PM MAGISTERIAL DISTRICT JUDGE): -Recommended: Healthy diet. Avoiding junk food/fast food. [...] 07/23/2023 Assessment & Plan (12/19/2023 12:34 PM MAGISTERIAL DISTRICT JUDGE): Continue B12 and magnesium nightly. Can continue [...] months Assessment & Plan (12/19/2023 12:34 PM MAGISTERIAL DISTRICT JUDGE): Stable. Improved with citalopram 20 mg once [...] - 06/26/2024 11:59 PM CDT Hospital Encounter [facility] [address] [place] [address] Breast pain, left Discharge Disposition: Discharge to home or self care 06/26/2024 Results Follow-Up [facility] Primary Care at [address] [phone] Tessa Alvarez NP US Breast Left Complete 06/25/2024 Results Follow-Up [facility] Primary Care at [address] [phone] Tessa Alvarez NP Hepatitis B core antibody, total Blood, Hepatitis B Surface Antigen Blood, Vitamin B12, Additional followed-up results: 10 06/23/2024 1:44 PM CDT - 06/23/2024 11:59 [place] [address] Need for hepatitis B screening test; Fatigue, unspecified type; Need for hepatitis C screening test; Encounter for hepatitis C screening test for low risk patient Discharge Disposition: Discharge to home or self care 06/23/2024 1:30 PM CDT Lab [facility] Out[facility] Lab at [address] [phone] 06/23/2024 1:00 PM CDT Office Visit [facility] Primary Care at [address] [phone] Tessa Alvarez NP Fatigue, unspecified type (Primary [...] on file Legal Sex Female 7:44 AM MAGISTERIAL DISTRICT JUDGE Gender Identity Not on file Sexual Orientation [...] LAB BLOOD ORDERABLES Final Re sult FOUZIA [address] Department [place] [address] * (ABNORMAL) Differential, auto (06/23/2024 1:44 PM CDT) Neutrophil abs 4.92 1.50 - 6.50 K/cumm Imm gran abs 0.04 0.00 - 0.10 K/cumm [facility] Lymphocyte abs 3.49(H) 0.80 - 3.30 K/cumm [facility] Monocyte abs 0.33 0.20 - 0.80 K/cumm [facility] Eosinophil abs 0.08 0.00 - 0.50 K/cumm [facility] Basophil abs 0.10 0.00 - 0.10 K/cumm [facility] Neutrophil pct 54.9 % FOUZIA Comment: Interpretive [...] revised on 2017. Basophil pct 1.1 % [facility] Comment: Interpretive Data Percent cell count reference ranges are not reported, since discordance with absolute values may lead to misinterpretation of CBC data. Current Interpretive Data was last revised on 2017. Blood 06/23/2024 1:44 PM CDT 06/23/2024 10:37 PM CDT Tessa Alvarez NP LAB BLOOD ORDERABLES Final Re sult Performing Organization Address [facility] Co de Phone Number FOUZIA MARIANO [address] [employer] [place], [place] [id number] * Thyroid Function [place] (06/23/2024 1:44 PM CDT) TSH 1.47 0.30 - 4.20 mcIUnit/mL Blood 06/23/2024 1:44 PM CDT 06/23/2024 10:37 PM CDT Tessa Alvarez NP LAB BLOOD ORDERABLES Final Re sult Performing Organization Address [facility] Co de Phone Number FOUZIA MARIANO [address] [facility] [place] [address] * (ABNORMAL) Iron profile w/ IBC (06/23/2024 1:44 PM CDT) Iron 123 35 - 145 mcg/dl TIBC 419(H) 250 - 400 mcg/dL C[facility] Transferrin saturation 29 20 - 50 % [facility] CH Blood 06/23/2024 1:44 PM CDT 06/23/2024 10:37 PM CDT Tessa Alvarez NP LAB BLOOD ORDERABLES Final Re sult Performing Organization Address [facility] Co de Phone Number FOUZIA MARIANO [address] [place] [address] * (ABNORMAL) CBC with auto differential (06/23/2024 1:44 PM CDT) Pathologist [facility] WBC 8.96 3.80 - 9.90 K/cumm Hgb 14.6 11.9 - 15.5 g/dL C[facility] CH Hct 45.6(H) 35.6 - 45.5 % [facility] Plt 217 150 - 400 K/cumm [facility] MPV 12.6(H) 9.1 - 12.3 fL [facility] RBC 4.99 3.90 - 5.20 M/cumm [facility] MCV 91.4 81.3 - 96.4 fL [facility] MCH 29.3 27.1 - 33.3 pg CERNER MCHC 32.0(L) 32.3 - 35.7 g/dL CERNER CH RDW CV 12.9 11.1 - 14.9 % [facility] RDW SD 43.0 35.7 - 48.1 fL [facility] NRBC abs 0.00 0.00 - 0.01 K/cumm [facility] Blood 06/23/2024 1:44 PM CDT 06/23/2024 10:37 PM CDT Tessa Alvarez NP LAB BLOOD ORDERABLES Final Re sult Performing Organization Address [facility]/ZIP Co de Phone Number FOUZIA MARIANO [address] [place] [address] * Hepatitis C antibody Blood (06/23/2024 1:44 PM CDT) Pathologist [facility] Hep C Ab Nonreactive Nonreactive Comment: Interpretive [...] OR DERABLES Final Result Performing Organization Address [facility] Co de Phone Number [facility] [address] [place] [address] * Hepatitis B core antibody, total Blood (06/23/2024 1:44 PM CDT) Pathologist [facility] Hep B core IgG/IgM Nonreactive Nonreactive Comment:Testing performed by : [facility], [address] [place]., [address] Blood 06/23/2024 1:44 PM CDT 06/24/2024 9:59 AM CDT Tessa Alvarez NP LAB MICROBIOLOGY - GENERAL OR DERABLES Final Result Performing Organization Address City/[facility] Co de Phone Number [facility] [address] [place] [address] * Hepatitis B surface antibody (immune status) Blood (06/23/2024 1:44 PM CDT) Pathologist [facility] HBsAb (immune status) Nonreactive Comment: Interpretive Data [...] OR DERABLES Final Result Performing Organization Address [facility] de Phone Number FOUZIA [address] [place] [address] * Hepatitis B Surface Antigen Blood (06/23/2024 1:44 PM CDT) Pathologist [facility] HepBsAg Nonreactive Nonreactive Blood 06/23/2024 1:44 PM CDT 06/23/2024 10:37 PM CDT Tessa Alvarez NP LAB MICROBIOLOGY - GENERAL OR DERABLES Final Result Performing Organization Address [facility] de Phone Number [facility] [address] [place] [address] * Hemoglobin A1c (06/23/2024 1:44 PM CDT) Pathologist [facility] Hgb A1C 5.0 4.0 - 5.6 % Estimated Average Glucose 97 mg/dL FOUZIA MARIANO Comment: The ADA recommends reporting an estimated Average Glucose (eAG) with all Hemoglobin A1c results using the equation derived from a study of 507 normal and diabetic adults. Minority populations were underrepresented and children were not included. (Diabetes Care 31:4574-8887, 2008). The eAG is not equivalent to a fasting glucose. Blood 06/23/2024 1:44 PM CDT 06/23/2024 10:37 PM CDT Tessa Alvarez NP LAB BLOOD ORDERABLES Final Re sult Performing Organization Address [facility] Co de Phone Number FOUZIA [address] [address] [facility] [employer] [place], [place] [id number] * (ABNORMAL) Vitamin B12 (06/23/2024 1:44 PM CDT) Vitamin B12 2,986(H) 230 - 1,250 pg/mL Blood 06/23/2024 1:44 PM CDT 06/23/2024 10:37 PM CDT Tessa Alvarez NP LAB BLOOD ORDERABLES Final Re sult FOUZIA MARIANO [address] Department [place] [address] * (ABNORMAL) Lipid panel (06/23/2024 1:44 PM [...] [place] [address] [address] Department [place] [address] * (ABNORMAL) Comprehensive metabolic panel (06/23/2024 1:44 [...] CDT 06/23/2024 10:37 PM CDT Tessa Alvarez UNDERWATER ROBOTICIST LAB BLOOD ORDERABLES Final Re sult FOUZIA MARIANO [address] Department [place] [address] from Last 3 Months Insurance [facility] PLUS [facility] H[facility]/PPO Address: [address] [place] [id number] [facility] CHO[facility] PLUS [facility] H[facility]/PPO Address: [address] [address] [place] [address] Care Teams Marketing Systems Manager Relationship Specialty Start Date End Date Tessa Alvarez NP PCP - General Family Medicine 07/22/23 Katie Geiger DO [address] [place] [address] Referring Physician Obstetrics and Gynecology 12/19/23
--- OUTSIDE RECORDS SUMMARY | 2024-07-05 20:39 | XMS_ITS | Encounter Summary ---
Author Organization [facility] Healthcare Address [address] [place] [address] Care Team Providers Care [employer] Scout Name Role Phone Tessa Alvarez NP Primary Care Provider [phone] Katie Geiger Marjorie DO Unavailable [phone] Encounter Details Date Type Department Care Team (Late st Contact Info) Description 06/25/2024 Results Follow-Up [facility] Medical Group Primary Care at [address] [phone] Tessa Alvarez NP [address] [place] [address] [address] [place] [address] Hepatitis B core antibody, total [...] on file Legal Sex Female 7:44 AM HOME SPECIALIST Gender Identity Not on file Sexual Orientation Not on file documented as of this encounter Plan of Treatment Not on file documented as of this encounter Visit Diagnoses Not on filedocumented in this encounter Care Teams [employer] Scout Relationship Specialty Start Date End Date Tessa Alvarez NP PCP - General Family Medicine 07/22/23 Katie Geiger DO [address] [facility] [address] [place] [address] Referring Physician Obstetrics and Gynecology 12/19/23 documented as of this encounter
--- OUTSIDE RECORDS SUMMARY | 2024-07-05 20:39 | XMS_ITS | Clinical Summary ---
Author Organization [facility] Address [address] [address] Care Team Providers Care Addictions Counselor Name Role Phone RuiElizabeth michael Primary Care Provider [phone] Allergies No known active allergies Medications citalopram [...] needed. 20 Gram 5 03/25/2024 7:18 PM FORMING ROLL OPERATOR 4 Active ondansetron (ZOFRAN ODT) 4 mg Tablet, Rapid Dissolve Dissolve 1 tablet (4 mg total) by mouth every 8 (eight) hours as needed for nausea or vomiting 20 Tablet 1 03/25/2024 7:18 PM FORMING ROLL OPERATOR 4 Active citalopram (CeleXA) 20 mg tablet [...] CDT Respiratory Rate 18 02/16/2023 6:56 AM FORMING ROLL OPERATOR Oxygen Saturation 99% 09/23/2023 10: 46 AM CDT Inhaled Oxygen Concentration - - Weight 57.1 kg (125 lb 12.8 oz) 024 10:46 AM CDT Height 160 cm (5' 3 ) 09/23/2023 10:46 AM CDT Body Mass Index 22.28 09/23/2023 10:46 AM CDT Plan of Treatment Upcoming Encounters Date Type Department Care Team (Late st Contact Info) Description 09/23/2024 11:00 AM CDT Office Visit [facility] SAND SLINGER OPERATOR [id number] [place] [address] Katie Geiger, DO [address] [facility] [address] [place] [address] Health Maintenance Due Date Last [...] (09/23/2023 11:19 AM CDT) COMMENT (PAP): Zoe [employer] AGRony Fountain Comment: This order for age-based cervical cancer and STI screening follows ACOG guidelines(PB 168, 140, WZT585). See individual assays for performing site location. [...] has been evaluated with computer assisted technology. TRUCK SHOP MECHANIC: Lindsey Fountain Comment: MMD, CT(ASCP) CT Screening Location: [address] [address] [address] Liliana Fountain Comment: [...] and current clinical information. Test Performed at: [facility] [address] [place] [facility] SWAB OF ENDOCERVIX / Unknown 09/23/2023 11:19 AM CDT 09/23/2023 10:39 PM CDT Katie Geiger DO PATHOLOGY/CYTOLOGY ORDERABLES F inal Result [facility] [phone] [place] [address] [address] [address] from Last 3 Months or Most Recently Relevant to Health Maintenance Insurance [facility] [id number] [employer] [place] [employer] (INTERNAL) [facility] Internal Plans Advance Directives For more information, please contact: [phone] * Full Code (Latest Code Status on File) Date Activated Date Inactivated Comments 02/14/2023 1:20 PM 02/16/2023 3:20 PM * Full Code Date Activated Date Inactivated Comments 07/12/2021 5:02 PM 07/13/2021 12:36 PM * Full Code Date Activated Date Inactivated Comments 06/24/2021 11:46 AM 06/24/2021 4:31 PM Care Teams Addictions Counselor Relationship Specialty Start Date End Date Elizabeth Fabian DO [address] [place] [phone] PCP - General 01/26/15
--- OUTSIDE RECORDS SUMMARY | 2024-07-05 20:39 | XMS_ITS | Encounter Summary ---
Author Organization [facility] Healthcare Address [address] [place] [address] Care Team Providers Care Pigment Making Supervisor Name Role Phone Tessa Alvarez NP Primary Care Provider [phone] Katie Geiger DO Unavailable [phone] Encounter Details Date Type Department Care Team (Late st Contact Info) Description 06/26/2024 Results Follow-Up [facility] Medical Group Primary Care at [place] [address] [place] [address] Tessa Alvarez NP [address] [facility] [address] [place] [address] US Breast Left Complete Social [...] on file Legal Sex Female 7:44 AM LABEL TACKER Gender Identity Not on file Sexual Orientation Not on file documented as of this encounter Plan of Treatment Not on file documented as of this encounter Visit Diagnoses Not on filedocumented in this encounter Care Teams Pigment Making Supervisor Relationship Specialty Start Date End Date Tessa Alvarez NP PCP - General Family Medicine 07/22/23 Katie Geiger DO [address] [facility] [address] [place] [address] Referring Physician Obstetrics and Gynecology 12/19/23 documented as of this encounter
--- NOTE | 2024-07-05 21:36 | ED_ITS ---
HPI - General Adult General Chief complaint: Unspecified Stated complaint: nose injury Time Seen by Provider: 07/05/24 20:22 History of Present Illness HPI narrative: Patient is a 28-year-old female who presents to the ER with facial pain following an injury. She reports she was sitting on the couch when her young daughter jumped up and the top of her daughters head connected with patient's nose/ left side of her face. Patient denies loss of consciousness, visual changes, jaw tenderness, or vomiting. She endorses mild nausea, teeth tenderness, and nasal pain. Patient denies any other medical history related to this ER visit. Related Data Allergies Allergy/AdvReac Type Severity Reaction Status Date / Time No Known Allergies Allergy Verified 12/28/21 23:36 Review of Systems Review of Systems: All systems reviewed & are unremarkable except as noted in HPI and below Exam Narrative: GENERAL: Well appearing, well-nourished, non-toxic, in no acute distress. HEAD: Normocephalic, no visible bruising or redness to face, no visible blood in pt's nares NECK: Supple. No adenopathy, no masses. Negative cervical spine tenderness, negative mastoid tenderness, negative jaw dislocation RESPIRATORY: Airway patent, respirations nonlabored. Clear to auscultation bilaterally, no rales, rhonchi, wheezing. CARDIOVASCULAR: Regular rate and rhythm without murmurs, rubs, or gallops. Peripheral pulses 2+ and equal bilaterally. ABDOMINAL: Soft, nontender, nondistended, no hepatosplenomegaly. Normoactive BS. MUSCULOSKELETAL: Moves all extremities. Strength/ROM intact without gross deformities. SKIN: Warm, dry, normal color. No rashes. NEURO: A&O X3. Speech clear. Cranial nerves II-XII intact. No ataxic movements. PSYCHIATRIC: Appropriate mood and affect. Normal interaction. Course Vital Signs Vital signs: Vital Signs Temperature 36.7 C 07/05/24 19:56 Pulse Rate 84 07/05/24 19:56 Respiratory Rate 16 07/05/24 19:56 Blood Pressure 123/75 07/05/24 19:56 Pulse Oximetry 100 07/05/24 19:56 Oxygen Delivery Room Air 07/05/24 19:56 Temperature 36.7 C 07/05/24 19:56 Pulse Rate 84 07/05/24 19:56 Respiratory Rate 16 07/05/24 19:56 Blood Pressure 123/75 07/05/24 19:56 Pulse Oximetry 100 07/05/24 19:56 Oxygen Delivery Room Air 07/05/24 19:56 Medical Decision Making MDM Narrative Medical decision making narrative: Patient is a 28-year-old female who presents to the ER with facial pain following an injury. She reports she was sitting on the couch when her young daughter jumped up and the top of her daughters head connected with patient's nose/ left side of her face. Patient denies loss of consciousness, visual changes, jaw tenderness, or vomiting. She endorses mild nausea, teeth tenderness, and nasal pain. Patient denies any other medical history related to this ER visit. Labs Ordered: None necessary Imaging Ordered: CT facial bones Medications Ordered: None necessary (pt declined pain medication administration) Patient has chosen to refuse further care. Risks of an incomplete evaluation and treatment were discussed with the patient, including potential for or permanent disability. Patient seems to understand these risks, but still desires to refuse further care. Patient recommended to follow up with PCP in the next possible interval. Specifically, patient was told they can return to the ED at any time to resume care. Vital Signs Vital Signs: Vital Signs Temperature 36.7 C 07/05/24 19:56 Pulse Rate 84 07/05/24 19:56 Respiratory Rate 16 07/05/24 19:56 Blood Pressure 123/75 07/05/24 19:56 Pulse Oximetry 100 07/05/24 19:56 Oxygen Delivery Room Air 07/05/24 19:56 Temperature 36.7 C 07/05/24 19:56 Pulse Rate 84 07/05/24 19:56 Respiratory Rate 16 07/05/24 19:56 Blood Pressure 123/75 07/05/24 19:56 Pulse Oximetry 100 07/05/24 19:56 Oxygen Delivery Room Air 07/05/24 19:56 Discharge Plan Discharge Clinical Impression: Facial trauma, Nasal pain Patient Disposition: Left Against Medical Advice Condition: Stable Patient Language: Mauritanian Follow-up/Referrals: Kim,TRICE Pringle [Primary Care Provider] - Time of Disposition: 03:18
--- NOTE | 2024-07-05 22:23 | PC.NURSE ---
pt verbalized not wanting to wait for imaging and wanting to leave. edp dasha notified
== END 2024-07-05 22:32 | disposition left against medical advice (07) ==
LOC: ANHED 20:37
PROVIDERS: Emergency Provider Registered Nurse; PCP Nurse Practitioner Family
DX: J34.89 Other specified disorders of nose and nasal sinuses (principal); W50.0XXA Accidental hit or strike by another person, initial encounter
CPT/HCPCS: 99282